=== PATIENT | female | born 1960 | race Caucasian/White ===

== ENCOUNTER 2016-09-04 14:15 | Emergency (ER) | payer BC ==
[2016-09-04] MEDS ORDERED: ONDANSETRON 4 MG/2ML 2 ML VIAL ONE (15:03)
[2016-09-04] MEDS ORDERED: KETOROLAC TROMETHAMINE 30 MG/ML 1 ML VIAL ONE (15:03)
[2016-09-04 15:04] LABS: ABSOLUTE NEUTROPHIL COUNT 5.4 K/mm3 (1.8-7.7); BASO # 0.1 K/mm3 (0.0-0.2); BASO % 0.7 % (0.2-1.0); EOS # 0.2 (0.0-0.5); EOS % 1.8 % (0.9-2.9); HEMATOCRIT 46.2 % (37.0-47.0); IMM NEUT # 0.1 K/mm3 (0-0.2); IMM NEUT% 0.4 % (0-1); LYMPH # 4.8 (1.0-4.8); LYMPH % 42.7 % (15-45); MEAN CELL VOLUME 92.6 fl (81.0-99.0); MEAN CORPUSCULAR HEMOGLOBIN 30.1 pg (27.0-31.0); MEAN CORPUSCULAR HGB CONC 32.5 g/dl (33.0-37.0); MONO # 0.7 (0.0-0.8); MONO % 6.5 % (4-12); NEUT % 47.9 % (43-75); PLATELET COUNT 351 K/mm3 (130-400); RED CELL DISTRIBUTION WIDTH 13.7 % (11.5-14.5)
[2016-09-04 15:10] LABS: SPECIFIC GRAVITY 1.025 (1.001-1.030); URINE APPEARANCE HAZY; URINE BILIRUBIN NEGATIVE (NEGATIVE); URINE BLOOD 4+ (NEGATIVE); URINE COLOR BROWN; URINE GLUCOSE (UA) NEGATIVE (NEGATIVE); URINE LEUKOCYTE ESTERASE TRACE (NEGATIVE); URINE NITRITE NEGATIVE (NEGATIVE); URINE PROTEIN TRACE (NEGATIVE); URINE UROBILINOGEN NORMAL (0-1 mg/dl)
[2016-09-04 15:17] LABS: URINE BACTERIA FEW; URINE RBC >100 /hpf
[2016-09-04 15:26] LABS: ALB/GLOB RATIO 1.4 (>1.0); ALBUMIN 4.2 gm/dL (3.5-5.7); CALCIUM 9.6 mg/dL (8.6-10.3)
[2016-09-04 15:33] LABS: HCG,QUALITATIVE URINE NEGATIVE
== END 2016-09-04 16:10 | disposition home or self-care (01) ==
LOC: ED 14:15
DX: R10.9 Unspecified abdominal pain (principal); R31.9 Hematuria, unspecified
CPT/HCPCS: 81025; 85025; 87086; 80053; 81001; 96375; 99283 ×2; 96374; J1885; J2405